=== PATIENT | male | born 1980 | race Caucasian/White ===

== ENCOUNTER 2017-08-26 13:38 | Emergency (ER) | payer OTHER ==
[~2017-08-26] VITALS: Ht 180.3 cm; Wt 76.4 kg
[2017-08-26 13:39] VITALS: BP 146/99
[2017-08-26] MEDS ORDERED: PRED20TA PO (15:02)
== END 2017-08-26 15:17 | disposition home or self-care (01) ==
LOC: M ED 13:38
DX: T78.40XA Allergy, unspecified, initial encounter (principal); R21 Rash and other nonspecific skin eruption; F17.210 Nicotine dependence, cigarettes, uncomplicated; Z88.1 Allergy status to other antibiotic agents; Z91.040 Latex allergy status

== ENCOUNTER → 2017-11-11 | Outpatient (CLI) | payer OTHER | LOC: M WUC 15:45 | DX: M79.641 Pain in right hand (principal) | CPT/HCPCS: 73130 ==

== ENCOUNTER → 2018-06-01 | Outpatient (CLI) | payer OTHER | LOC: M SLEEP 19:32 | DX: G47.30 Sleep apnea, unspecified (principal) | CPT/HCPCS: 95810 ==

== ENCOUNTER → 2019-03-31 | Outpatient (CLI) | payer OTHER ==
[~2019-03-31] MED LIST: PRED20TA PO
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
== END ==
LOC: M PAIN 16:00
PROVIDERS: ATTEND Anesthesiology
DX: M51.16 Intervertebral disc disorders with radiculopathy, lumbar region (principal); M51.17 Intervertebral disc disorders with radiculopathy, lumbosacral region; M79.18 Myalgia, other site; G47.30 Sleep apnea, unspecified; G47.00 Insomnia, unspecified; F31.9 Bipolar disorder, unspecified; F90.9 Attention-deficit hyperactivity disorder, unspecified type; F17.210 Nicotine dependence, cigarettes, uncomplicated; Z88.1 Allergy status to other antibiotic agents; Z88.5 Allergy status to narcotic agent

== ENCOUNTER 2019-09-21 10:41 | Emergency (ER) | payer OTHER ==
[~2019-09-21] VITALS: Ht 182.9 cm; Wt 68.3 kg
[2019-09-21] MEDS ORDERED: TIZA4TAB4 (10:47)
[2019-09-21] MEDS ORDERED: MELO7.5T35 (10:47)
[2019-09-21] MEDS ORDERED: LIDOCAINE 5% (LIDODERM) PATCH TD ONE (11:30)
[2019-09-21] MEDS ORDERED: ACETAMINOPHEN 500 MG TAB PO ONE (11:30)
[2019-09-21] MEDS ORDERED: diazePAM 5 MG TAB PO ONE (11:30)
[2019-09-21] MEDS ORDERED: LIDO5DIS41 TD (12:02)
[2019-09-21] MEDS ORDERED: IBUP80TA PO (12:02)
[2019-09-21 12:05] VITALS: BP 144/87
[2019-09-21] MEDS ORDERED: **NOTE PATIENT COMMENT** MISC XX SCH (21:00)
== END 2019-09-21 12:06 | disposition home or self-care (01) ==
LOC: M ED 10:41
DX: S39.012A Strain of muscle, fascia and tendon of lower back, initial encounter (principal); X58.XXXA Exposure to other specified factors, initial encounter; Y92.89 Other specified places as the place of occurrence of the external cause; M41.9 Scoliosis, unspecified; Z88.1 Allergy status to other antibiotic agents; Z91.040 Latex allergy status; Z91.048 Other nonmedicinal substance allergy status

== ENCOUNTER → 2019-10-19 | Outpatient (REF) | payer OTHER, MEDICAID ==
[~2019-10-19] MED LIST changes: +IBUP80TA PO; +LIDO5DIS41 TD; +MELO7.5T35; +TIZA4TAB4
[2019-10-19 17:52] LABS: BASO # 0.1 10^3/uL (0.0-0.2); BASO % 0.9 % (0.0-1.0); EOS # 0.4 10^3/uL (0.0-0.5); EOS % 3.4 % (0.0-3.0); HEMATOCRIT 48.3 % (42.0-52.0); HEMOGLOBIN 16.2 g/dl (13.5-17.5); LYMPH # 2.5 10^3/uL (1.5-5.0); LYMPH % 23.2 % (24.0-44.0); MEAN CORPUSCULAR HEMOGLOBIN 32.8 pg (27.0-33.0); MEAN CORPUSCULAR HGB CONC 33.5 g/dl (32.0-36.5); MEAN CORPUSCULAR VOLUME 97.8 fl (80.0-96.0); MONO # 0.9 10^3/uL (0.0-0.8); MONO % 8.2 % (0.0-5.0); NEUTROPHILS # 6.9 10^3/uL (1.5-8.5); NEUTROPHILS % 63.8 % (36.0-66.0); PLATELET COUNT, AUTOMATED 316 10^3/uL (150-450); RED BLOOD COUNT 4.94 10^6/uL (4.30-6.10); WHITE BLOOD COUNT 10.8 10^3/uL (4.0-10.0)
[2019-10-19 18:02] LABS: ALT/SGPT 25 U/L (12-78); BILIRUBIN,TOTAL 0.3 MG/DL (0.2-1.0); BLOOD UREA NITROGEN 11 MG/DL (7-18); CALCIUM LEVEL 9.3 MG/DL (8.5-10.1); CARBON DIOXIDE LEVEL 32 MEQ/L (21-32); CHLORIDE LEVEL 107 MEQ/L (98-107); CHOLESTEROL LEVEL 184 MG/DL (<200); CHOLESTEROL RISK RATIO 2.875 (<5); CREATININE FOR GFR 0.84 MG/DL (0.70-1.30); FREE T4 0.92 NG/DL (0.76-1.46); GLOMERULAR FILTRATION RATE > 60.0 (>60); GLUCOSE, FASTING 104 MG/DL (70-100); HDL CHOLESTEROL 64 MG/DL (>40); LDL CHOLESTEROL 102 MG/DL (<100); NON-HDL-C 120 MG/DL; POTASSIUM SERUM 4.9 MEQ/L (3.5-5.1); SODIUM LEVEL 140 MEQ/L (136-145); TOTAL PROTEIN 7.4 GM/DL (6.4-8.2); TRIGLYCERIDES LEVEL 90 MG/DL (<150)
[2019-10-19 18:08] LABS: HEMOGLOBIN A1c 5.3 %
[2019-10-20 11:03] LABS: TOTAL 25(OH) VITAMIN D 20.5 NG/ML (30.0-100.0)
== END ==
LOC: M LAB REF 16:29
PROVIDERS: ATTEND Nurse Practitioner Family
DX: F10.20 Alcohol dependence, uncomplicated (principal); F17.210 Nicotine dependence, cigarettes, uncomplicated; M54.9 Dorsalgia, unspecified; R03.0 Elevated blood-pressure reading, without diagnosis of hypertension; M54.6 Pain in thoracic spine

== ENCOUNTER 2020-10-02 15:15 | Emergency (ER) | payer OTHER, MEDICAID ==
[~2020-10-02] VITALS: Ht 182.9 cm; Wt 65.2 kg
--- OUTSIDE RECORDS SUMMARY | 2020-10-02 15:22 | CCD | Continuity of Care Document ---
Author Author Miguel PHAN PA-C Organization Unknown Address [address] [place] [id number] Phone [phone] Care Team Providers Care Renewals Representative Name Role Phone Maya Bal SENIOR NETWORK ARCHITECT-BC [employer] Problems Description No Information Available Social History Type Date Description Comments Sex Unknown ETOH Use Currently consumes alcohol DAILY Tobacco Use Start: Unknown Patient is a current smoker, smo kes every day 1 pack every other day Smoking Status Reviewed: 10/06/19 Patient is a current smoker, smokes every day 1 pack every other day Allergies, Adverse Reactions, Alerts Active Allergies Reaction Severity Comments Date clyndamyacin 10/06/2019 Medications Active Medications SIG Qnty Indications Ordering Provide r Date Baclofen 10mg Tablets 1 3 times a day 30tabs M51.36 Maurizio Benítez MD 10/06/2019 Ibuprofen 800mg Tablets one by mouth three times a day as needed Unknown Immunizations Description No Information Available Vital Signs Date Vital Result Comment 10/06/2019 10:03am Body Temperature 98.2 F Height 71 inches 5'11" Weight 150.00 lb BMI (Body Mass Index) 20.9 kg/m2 Results Description No Information Available Procedures Description No Information Available Medical Devices Description No Information Available Encounters Type Date Location Provider Dx Diagnosis Office Visit 07/10/2020 2:45p Jacinta Phan PA-C M5 1.36 Other intervertebral disc degeneration, lumbar region M54.31 Sciatica, right side M54.16 Radiculopathy, lumbar region Office Visit 05/29/2020 2:45p Jacinta Phan PA-C M5 1.36 Other intervertebral disc degeneration, lumbar region M54.31 Sciatica, right side Assessments Date Code Description Provider 07/10/2020 M51.36 Other intervertebral disc degene ration, lumbar region Jazz Phan PA-C 07/10/2020 M54.31 Sciatica, right side Jazz Phan PA-C 07/10/2020 M54.16 Radiculopathy, lumbar region Ethan Phan PA-C 05/29/2020 M51.36 Other intervertebral disc degene ration, lumbar region Jazz Phan PA-C 05/29/2020 M54.31 Sciatica, right side Jazz Phan PA-C 03/25/2020 M51.36 Other intervertebral disc degene ration, lumbar region Jazz Phan PA-C 03/25/2020 M54.31 Sciatica, right side Jazz Phan PA-C Plan of Treatment 07/10/2020 - Jazz Phan PA-C* M51.36 Other intervertebral disc degeneration, lumbar region* Follow up:* 2 weeks with bms for back re-check * M54.31 Sciatica, right side * M54.16 Radiculopathy, lumbar region Functional Status Description No Information Available Mental Status Description No Information Available Referrals Refer to Reason for Referral Status Appt Date Jazz Phan PA-C MRI- BACK PER WEB. PASSED TO [facility]. RAD[facility] Created [address] [place] [address] [place] [address] [phone]
--- OUTSIDE RECORDS SUMMARY | 2020-10-02 15:22 | CCD ---
Author Author [facility] Organization [facility] Address Unknown Phone Unavailable Care Team Providers Care [facility]itarian Name Role Phone Blayne, A Lidya GEOGRAPHIC ANALYST Unavailable Unavailable Blayne, A Lidya GEOGRAPHIC ANALYST Unavailable Unavailable Blayne, A Lidya GEOGRAPHIC ANALYST Unavailable Unavailable Blayne, A Lidya GEOGRAPHIC ANALYST Unavailable Unavailable Blayne, A Lidya GEOGRAPHIC ANALYST Unavailable Unavailable Blayne, A Lidya GEOGRAPHIC ANALYST Unavailable Unavailable Blayne, A Lidya GEOGRAPHIC ANALYST Unavailable Unavailable Blayne, A Lidya GEOGRAPHIC ANALYST Unavailable Unavailable Blayne, A Lidya GEOGRAPHIC ANALYST Unavailable Unavailable Blayne, A Lidya GEOGRAPHIC ANALYST Unavailable Unavailable Blayne, A Lidya GEOGRAPHIC ANALYST Unavailable Unavailable Blayne, A Lidya GEOGRAPHIC ANALYST Unavailable Unavailable Blayne, A Lidya GEOGRAPHIC ANALYST Unavailable Unavailable Blayne, A Lidya GEOGRAPHIC ANALYST Unavailable Unavailable Blayne, A Lidya GEOGRAPHIC ANALYST Unavailable Unavailable Blayne, A Lidya GEOGRAPHIC ANALYST Unavailable Unavailable Blayne, A Lidya GEOGRAPHIC ANALYST Unavailable Unavailable Blayne, A Lidya GEOGRAPHIC ANALYST Unavailable Unavailable Blayne, A Lidya GEOGRAPHIC ANALYST Unavailable Unavailable Blayne, A Lidya GEOGRAPHIC ANALYST Unavailable Unavailable Blayne, A Lidya GEOGRAPHIC ANALYST Unavailable Unavailable Blayne, A Lidya GEOGRAPHIC ANALYST Unavailable Unavailable Blayne, A Lidya GEOGRAPHIC ANALYST Unavailable Unavailable Blayne, A Lidya GEOGRAPHIC ANALYST Unavailable Unavailable Blayne, A Lidya GEOGRAPHIC ANALYST Unavailable Unavailable Blayne, A Lidya GEOGRAPHIC ANALYST Unavailable Unavailable Blayne, A Lidya GEOGRAPHIC ANALYST Unavailable Unavailable Rachell Garcia MD Unavailable Unavailable Rachell Garcia MD Unavailable Unavailable Rachell Garcia MD Unavailable Unavailable Rachell Garcia MD Unavailable Unavailable Rachell Garcia MD Unavailable Unavailable Rachell Garcia MD Unavailable Unavailable Rachell Garcia MD Unavailable Unavailable Rachell Garcia MD Unavailable Unavailable Rachell Garcia MD Unavailable Unavailable Rachell Garcia MD Unavailable Unavailable Rachell Garcia MD Unavailable Unavailable Rachell Garcia MD Unavailable Unavailable Rachell Garcia MD Unavailable Unavailable Rachell Garcia MD Unavailable Unavailable Rachell Garcia MD Unavailable Unavailable Rachell Garcia MD Unavailable Unavailable Rachell Garcia MD Unavailable Unavailable Rachell Garcia MD Unavailable Unavailable Rachell Garcia MD Unavailable Unavailable Rachell Garcia MD Unavailable Unavailable Rachell Garcia MD Unavailable Unavailable Rachell Garcia MD Unavailable Unavailable Rachell Garcia MD Unavailable Unavailable Rachell Garcia MD Unavailable Unavailable Rachell Garcia MD Unavailable Unavailable Rachell Garcia MD Unavailable Unavailable Rachell Garcia MD Unavailable Unavailable Rachell Garcia MD Unavailable Unavailable Rachell Garcia MD Unavailable Unavailable Rachell Garcia MD Unavailable Unavailable Rachell Garcia MD Unavailable Unavailable Rachell Garcia MD Unavailable Unavailable Rachell Garcia MD Unavailable Unavailable Rachell Garcia MD Unavailable Unavailable Rachell Garcia MD Unavailable Unavailable Rachell Garcia MD Unavailable Unavailable Rachell Garcia MD Unavailable Unavailable Rachell Garcia MD Unavailable Unavailable Rachell Garcia MD Unavailable Unavailable Rachell Garcia MD Unavailable Unavailable Rachell Garcia MD Unavailable Unavailable Rachell Garcia MD Unavailable Unavailable Rcahell Garcia MD Unavailable Unavailable Rachell Garcia MD Unavailable Unavailable Rachell Garcia MD Unavailable Unavailable Rachell Garcia MD Unavailable Unavailable Rachell Garcia MD Unavailable Unavailable Rachell Garcia MD Unavailable Unavailable Rachell Garcia MD Unavailable Unavailable Rachell Garcia MD Unavailable Unavailable Rachell Garcia MD Unavailable Unavailable Rachell Garcia MD Unavailable Unavailable Rachell Garcia MD Unavailable Unavailable Rachell Garcia MD Unavailable Unavailable Rachell Garcia MD Unavailable Unavailable Rachell Garcia MD Unavailable Unavailable Rachell Garcia MD Unavailable Unavailable Rachell Garcia MD Unavailable Unavailable Rachell Garcia MD Unavailable Unavailable Rachell Garcia MD Unavailable Unavailable Rachell Garcia MD Unavailable Unavailable Rachell Garcia MD Unavailable Unavailable Rachell Garcia MD Unavailable Unavailable Rachell Garcia MD Unavailable Unavailable Rachell Garcia MD Unavailable Unavailable Rachell Garcia MD Unavailable Unavailable Rachell Garcia MD Unavailable Unavailable Rachell Garcia MD Unavailable Unavailable Rachell Garcia MD Unavailable Unavailable Rachell Garcia MD Unavailable Unavailable Rachell Garcia MD Unavailable Unavailable Rachell Garcia MD Unavailable Unavailable Rachell Garcia MD Unavailable Unavailable Rachell Garcia MD Unavailable Unavailable Rachell Garcia MD Unavailable Unavailable Rachell Garcia MD Unavailable Unavailable Rachell Garcia MD Unavailable Unavailable Rachell Garcia MD Unavailable Unavailable Rachell Garcia MD Unavailable Unavailable Rachell Garcia MD Unavailable Unavailable Rachell Garcia MD Unavailable Unavailable Rachell Garcia MD Unavailable Unavailable Rachell Garcia MD Unavailable Unavailable Rachell Garcia MD Unavailable Unavailable Rachell Garcia MD Unavailable Unavailable Rachell Garcia MD Unavailable Unavailable Rachell Garcia MD Unavailable Unavailable Rachell Garcia MD Unavailable Unavailable Rachell Garcia MD Unavailable Unavailable Phan, M Barratt PA Unavailable Unavailable Phan, M Barratt PA Unavailable Unavailable Phan, M Barratt PA Unavailable Unavailable Phan, M Barratt PA Unavailable Unavailable Phan, M Barratt PA Unavailable Unavailable Phan, M Barratt PA Unavailable Unavailable Phan, M Barratt PA Unavailable Unavailable Phan, M Barratt PA Unavailable Unavailable Phan, M Barratt PA Unavailable Unavailable Phan, M Barratt PA Unavailable Unavailable Phan, M Barratt PA Unavailable Unavailable Phan, M Barratt PA Unavailable Unavailable Phan, M Barratt PA Unavailable Unavailable Phan, M Barratt PA Unavailable Unavailable Phan, M Barratt PA Unavailable Unavailable Phan, M Barratt PA Unavailable Unavailable Phan, M Barratt PA Unavailable Unavailable Phan, M Barratt PA Unavailable Unavailable Phan, M Barratt PA Unavailable Unavailable Phan, M Barratt PA Unavailable Unavailable Phan, M Barratt PA Unavailable Unavailable Phan, M Barratt PA Unavailable Unavailable Phan, M Barratt PA Unavailable Unavailable Phan, M Barratt PA Unavailable Unavailable Phan, M Barratt PA Unavailable Unavailable Phan, M Barratt PA Unavailable Unavailable Phan, M Barratt PA Unavailable Unavailable Phan, M Barratt PA Unavailable Unavailable Phan, M Barratt PA Unavailable Unavailable Phan, M Barratt PA Unavailable Unavailable Phan, M Barratt PA Unavailable Unavailable Phan, M Barratt PA Unavailable Unavailable Phan, M Barratt PA Unavailable Unavailable Phan, M Barratt PA Unavailable Unavailable Phan, M Barratt PA Unavailable Unavailable Phan, M Barratt PA Unavailable Unavailable Phan, M Barratt PA Unavailable Unavailable Phan, M Barratt PA Unavailable Unavailable Phan, M Barratt PA Unavailable Unavailable Phan, M Barratt PA Unavailable Unavailable Phan, M Barratt PA Unavailable Unavailable Phan, M Barratt PA Unavailable Unavailable Phan, M Barratt PA Unavailable Unavailable Phan, M Barratt PA Unavailable Unavailable Phan, M Barratt PA Unavailable Unavailable Phan, M Barratt PA Unavailable Unavailable Phan, M Barratt PA Unavailable Unavailable Phan, M Barratt PA Unavailable Unavailable Phan, M Barratt PA Unavailable Unavailable Phan, M Barratt PA Unavailable Unavailable Phan, M Barratt PA Unavailable Unavailable Phan, M Barratt PA Unavailable Unavailable Phan, M Barratt PA Unavailable Unavailable Phan, M Barratt PA Unavailable Unavailable Lidya Cisneros GEOGRAPHIC ANALYST GEOGRAPHIC ANALYST Unavailable Unavailable Re-disclosure Warning The records that you are about to access may contain information from federally-assisted alcohol or drug abuse programs. If such information is present, then the following federally mandated warning applies: This information has been disclosed to you from records protected by federal confidentiality rules (42 CFR part 2). The federal rules prohibit you from making any further disclosure of this information unless further disclosure is expressly permitted by the written consent of the person to whom it pertains or as otherwise permitted by 42 CFR part 2. A general authorization for the release of medical or other information is NOT sufficient for this purpose. The Federal rules restrict any use of the information to criminally investigate or prosecute any alcohol or drug abuse patient.The records that you are about to access may contain highly sensitive health information, the redisclosure of which is protected by Article 27-F of the [facility] Public Health law. If you continue you may have access to information: Regarding HIV / AIDS; Provided by facilities licensed or operated by the [facility] Office of Mental Health; or Provided by the [facility] Office for People With Developmental Disabilities. If such information is present, then the following [facility] mandated warning applies: This information has been disclosed to you from confidential records which are protected by state law. State law prohibits you from making any further disclosure of this information without the specific written consent of the person to whom it pertains, or as otherwise permitted by law. Any unauthorized further disclosure in violation of state law may result in a fine or mcc sentence or both. A general authorization for the release of medical or other information is NOT sufficient authorization for further disc losure. Allergies and Adverse Reactions Type Description Substance Reaction Status Data Source(s ) Drug allergy HYDROCODONE HYDROCODONE [place] [facility] Drug allergy CLINDAMYCIN CLINDAMYCIN [place] [facility] try Family [facility] Family History Family Member Name Family Member Gender Family Member Status Date o f Status Description Data Source(s) Unknown Unknown Problem [facility] ([facility]) Encounters Encounter Providers Location Date Indications Data Source(s ) Outpatient Attender: Jazz CISNEROS Physical Therapy 02:45:00 PM EDT [facility] ([facility]) Outpatient Attender: Jazz CISNEROS Physical Therapy 02:45:00 PM EDT [facility] ([facility]) Outpatient Attender: Jazz CISNEROS Physical Therapy 01:15:00 PM EDT [facility] ([facility]) Outpatient Referrer: Jazz CISNEROS 03/05/2020 04:44:0 0 PM EDT [facility] Outpatient 03/05/2020 04:40:00 PM EDT [facility] Outpatient Attender: DENISE WALKER 02/09/2020 02:16:[address] [facility] Outpatient Attender: Lidya WALKER 02/09/2020 02:1 5:[address] [facility] Outpatient Attender: DENISE WALKER 02/01/2020 02:52:[address] [facility] Outpatient Attender: DENISE WALKER 01/31/2020 02:51:[address] [facility] Outpatient Attender: DENISE WALKER 01/22/2020 01:26:[address] [facility] Outpatient Attender: DENISE WALKER 12/07/2019 01:43:[address] [facility] Outpatient Attender: Jazz CISNEROS Physical Therapy 10:45:00 AM EDT [facility] ([facility]) Outpatient Attender: Lidya WALKER FP 11/04/2019 02:2 2:00 PM [facility] Outpatient Attender: DENISE WALKER FP 11/04/2019 02:22:00 P M [facility] Outpatient Attender: DENISE WALKER FP 10/27/2019 09:18:04 A M [facility] Outpatient Attender: Lidya Blayne WALKER FP 10/25/2019 01:1 8:02 PM [facility] Outpatient Attender: Lidyara Blayne WALKER FP 10/19/2019 10:1 4:47 AM [facility] Outpatient Attender: DENISE WALKER FP 10/19/2019 10:14:04 A M [facility] Outpatient 10/16/2019 08:35:00 AM [facility] Outpatient 10/12/2019 08:39:00 AM [facility] Outpatient 10/11/2019 02:56:00 PM [facility] Outpatient 10/11/2019 02:33:00 PM [facility] OFFICE OUTPATIENT NEW 30 MINUTES Attender: Jazz CISNEROS Ph ysical Therapy 10/06/2019 08:30:00 AM EST [facility] ([facility]) Outpatient Attender: Mati Garcia MD 09/29/2019 02:42:00 PM [facility] Outpatient Attender: Mati Garcia MD 09/26/2019 12:00:07 AM [facility] Outpatient Attender: Mati Garcia MD 09/25/2019 01:11:00 PM [facility] Outpatient Attender: Mati Garcia MD FP 09/25/2019 01:10:00 PM [facility] Outpatient Attender: Mati Garcia MD FP 09/25/2019 11:31:59 AM [facility] Outpatient Attender: Mati Garcia MD FP 09/25/2019 09:54:01 AM [facility] Outpatient Attender: Mati Garcia MD FP 09/22/2019 11:34:02 AM [facility] Medications Medication Brand Name Start Date Product Form Dose Route Admi nistrative Instructions Pharmacy Instructions Status Indications Reaction Description Data Source(s) Baclofen 10 MG Oral Tablet Baclofen 10/06/2019 12:00:00 AM EST active [facility] ([facility] Insurance Providers Payer name Policy type / Coverage type Policy ID Covered republican ID Covered republican's relationship to conway Policy [place] Plan Information GM [id number] SP [id number] UN[employer] COMMUNITY PLAN MCDHMO [id number] SP [id number] [facility]) O [id number] S [id number] Managed Care [facility] Community Plan P [id number] S [id number] Medicaid S [id number] S [id number] MEDICAID [id number] SP [id number] Managed Care [facility] P [id number] S [id number] ANSI-Medicaid [id number] Managed Care [facility] P [id number] S [id number] Medicaid S [id number] S [id number] SELF PAY UNAVAILABLE SP UNAVAILA BLE [facility] Health Maintenance Organization (HMO) [id number] [facility] Community Plan Commercial [id number] Self [id number] Managed Care - [facility] P [id number] S [id number] [facility] Health Maintenance Organization (HMO) [id number] Self [id number] [employer] NO FAULT [id number] 1 4 SP [id number] 1 4 [facility]) O [id number] S [id number] SELF PAY ONLY [id number] SP [id number] [employer] PLAN [id number] SP [id number] [employer] UNAVAILABLE SP UNAVAILABLE [employer] PLAN [id number] SP [id number] MEDICAID P [id number] S [id number] Problems, Conditions, and Diagnoses Code Display Name Description Problem Type Effective Dates Data Source(s) F12.90 Cannabis use, unspecified, uncomplicated Cannabis use, unspecified, uncomplicated 02/09/2020 02:14:[address] [facility] V65.8 Person consulting for explanation of exa mination or test findings Person consulting for explanation of examination or test findings 02/01/2020 02:51:[address] [facility] [id number] Alcohol dependence, uncomplicated Alcohol dependence, uncomplicated 09/25/2019 11:31:[address] [facility] 724.5 Chronic back pain Chronic back pain 09/25/2019 11:31:[address] [facility] Surgeries/Procedures Procedure Description Date Indications Data Source(s) X-Ray Spine Lumbosacral Complete Inc Bending Views Min Of 6 10/06/2019 12:00:00 AM EST [facility] ([facility]) Results ID Date Data Source [id number] 03/20/2020 12:00:00 AM EDT [facility] Jazz Phan [facility] Patient Name: HAROON NEGRON [id number] [facility] Date of : 1980 201 Date of Exam: 03/20/2020GRISEL Workman [id number]#: Fax: [phone] EXAM: MRI LUMBAR SPINE WITHOUT CONTRASTPROCEDURE INFORMATION:Exam: MR Lumbar Spine Without Contrast.Exam date and time: 03/20/2020 5:02 PM Age: 39 years oldClinical indication: Low back painTECHNIQUE: Imaging protocol: Multiplanar magnetic resonance images of thelumbar spine without intravenous contrast.COMPARISON: MRI LUMBAR 04/30/2018 9:25 AMFINDINGS: Vertebral body heights are maintained. Chronic unchanged mildModic type 1 edematous degenerative endplate change anteriorly at T12-L1.No evidence of acute fracture. No cord compression. No abnormal cordsignal. Conus medullaris terminates at the L1 level. Paravertebral softtissues are unremarkable.L1-L2: No significant canal or foraminal narrowing.L2-L3: No significant canal or foraminal narrowing.L3-L4: No significant canal or foraminal narrowing.L4-L5: Facet hypertrophy causes mild to moderate left foraminal narrowing.No significant canal narrowing.L5-S1: Broad-based disc bulge and facet hypertrophy cause mild canalnarrowing and effacement of the right lateral recess with questionableimpingement upon the traversing right S1 nerve root. Mild left and moderateright foraminal narrowing.IMPRESSION:Spondylotic changes of the lower lumbar spine from L4 through S1, asdetailed above.Thank you for allowing us to participate in the care of your patient.Dictated and Authenticated by: Mason Figueroa MD 03/22/2020 4:58 PMEastern Time ([place] & [place])VrgenevaV/Stephanie you for referring HAROON NEGRON to our office. Electronically Signed - MANISH 03/25/20 8:43 Name Value Range Interpretation Code Description Data Liv rce(s) Supporting Document(s) ID Date Data Source [id number] 02/01/2020 02:01:[address] [facility] Measurements & CalculationsHeight: 71 inches (5 ft. 11 in.) 180.34 cm Vital Signs performed by: Ilana Mary LPN, February 01, 2020 2:01 PMVital Signs performed by: Ilana Mary LPN, February 01, 2020 2:01 PMInitial Intake (Cell) Visit Type: phone encounterConsent Provided by PatientInfectious Disease / Travel ScreeningRecent travel for you or any close contacts? NoHave you had any close contact with anyone diagnosed with or under investigation for COVID-19 (coronavirus)? NoFever? NoRespiratory symptoms: cough, cold, congestion, shortness of breath, difficulty breathing? NoLoss of smell? NoLoss of taste? NoSmoking, Tobacco, Vaping or Smoke Exposure StatusSmoke Status: current every day smokerTobacco Use: YesAdv to Quit: YesDo you vape? NoPassive Smoke Exposure: NoHealthcare HistorySince your last office visit...Have you been admitted to the hospital? NoHave you been to an emergency room (ER) or urgent care clinic? NoHave you seen another healthcare provider? Yes - DR ROJAS Have you seen a dentist? Yes - NCFHIntake performed by: Ilana Mary LPN, February 01, 2020 2:03 PMRate Your HealthIn general, would you say your health is? Very GoodPain AssessmentAre you currently having any pain which... You would like your provider to address? Yes Affects your activity level? YesDepression Screening - PHQ-2Over the last two weeks, have you... Had alexa le interest or pleasure in doing things? Not at all Been feeling down, depressed, or hopeless? Not at all PHQ-2 Score: 0Anxiety Screening - UZMA-2Over the last two weeks, have you been... Feeling nervous, anxious, or on edge? Not at all Unable to stop or control worrying? Not at all UZMA-2 Score: 0Food InsecurityWithin the past year...Did you worry whether your food would run out before you got money to buy more? NoWas there a time when the food you bought didn't last and you didn't have money to get more? NoPain AssessmentPain ScaleNumeric Rating Scale: 10 / 10Location: low back Duration: Months Frequency: DailyCharacter/Quality: stabbingIs the pain radiating? YesTo what body part(s) is the pain radiating? right leg Screening, Brief Intervention, & Referral to Treatment (SBIRT)Pre-Screening Questions How many times have you have 5 or more drinks in a day? 180How many times have you used an illegal drug or used a prescription medication for a non-medical reason? 104Performed by: Ilana Mary LPN, February 01, 2020 2:13 PMPatient History Medical History:sleep apneaSurgical History:No known surgical historyFamily History:Hypertension (Mother)Social/Personal History: Age of First Use: 17Advised to Quit/Tobacco Education: YesChief ComplaintLab results History of Present Illness (HPI)This visit was conducted via telephone. Liday WALKER has received verbal consent from the patient/guardian to conduct this visit via telehealth. The patient has been made aware that they have the right to refuse telehealth; of my location and the security of the telehealth software; any other parties present in the session; and that they have a right to select another provider if chosen for a face to face visit.39 YO for lab results ,C/O chronic pain in back area. sees specialist. Pt states sill smokes 1-2 packs cigarettes daily. pt states also smokes marijuana frequently. pt drinks alcohol frequently. Pt denies chest pain. Pt denies chest palpitation. Pt denies nausea. Pt denies vomiting. Pt den ies other concerns today. HPI performed by: Lidya WALKER, February 01, 2020 2:46 PMTransitions of Care InboundProblem ReviewProblem List was reviewed and/or updated during this visit.Medication Reconciliation & ReviewMedication List was reviewed and/or updated during this visit, including review of any [id number] medications, herbal therapies, and/or supplements.Allergy ReviewAllergy List was reviewed and/or updated during this visit.Adult Preventive CareProvider Calculated and Reviewed all Clinical Protocols for patient today. Screening Tobacco Screening: Smoking Status: current every day smoker (02/01/2020) Tobacco Use: Currently (02/01/2020) Advised to Quit: Yes (02/01/2020)Labs/Meds/Other Counseling-Nutrition and Physical Activity:BMI Interpretation: Healthy Weight (09/25/2019) Counseling: Done (09/25/2019) Physical Activity: Done (09/25/2019)Review of Systems General: Denies loss of appetite, chills, dizziness, fatigue, fever, continued fever, headache, feeling ill, sweats, night sweats, sleep disturbances, weight loss. Eyes: Denies blurring of vision, double vision, irritation, discharge, vision loss, eye pain, eye swelling, droopy eyelid, sensitivity to light, redness, itching. Ears/Nose/Throat: Denies earache, ear discharge, ringing in ears, decreased hearing, nasal congestion, nosebleeds, runny nose, sore throat, hoarseness, difficulty swallowing, dry mouth, tooth pain, bleeding gums, swollen glands. Cardiovascular: Denies chest pain, palpitations, feeling faint, trouble breathing w/exertion, SOB upon lying down, SOB at night, peripheral edema, elevated blood pressure, decreased heart rate. Respiratory: Denies cough, difficulty breathing, shortness of breath, excessive sputum, coughing up blood, wheezing, chest pain. Breast: Denies discoloration, tenderness, breast changes, breast lump, nipple discharge. Gastrointestinal: Denies nausea, vomiting, bleeding, burning, itching, irritation, cramps, diarrhea, constipation. Genitourinary: Denies urinary incontinence, pain with urination, burning with urination, urinary frequency, urinary hesitancy, urinary urgency, urinary urgency at night, incomplete emptying, blood in urine. Musculoskeletal: Complai ns of back pain, joint pain, leg pain, body aches, muscle aches. Denies other pain-see comments, joint swelling, muscle cramps, muscle weakness, stiffness, recent injury. Skin: Denies rash, hives, redness, itching, dryness, nail changes, suspicious lesions, athlete's foot, rash on palms, rash on bottom of feet. Neurologic: Denies muscle impairment, weakness, numbness/tingling, seizures, slurred speech, feeling faint, tremors, vertigo, paralysis on one side, paralysis on both sides. Psychiatric: Denies depression, anxiety, memory loss, mental disturbance, suicidal ideation, homicidal ideation, hallucinations, paranoia, feeling stressed, hearing voices. Endocrine: Denies cold intolerance, heat intolerance, excessive thirst, excessive hunger, excessive urination, weight loss, weight gain. Physical ExamJudgment & Insight: seems poorCare Management Plan Transitions of CareInboundRate Your HealthIn general, would you say your health is? Very GoodAssessment & Plan Problems:Added: Person consulting for explanation of examination or test findings (ICD-V65.8) (LKW97-T81.2) Assessment: Instructions: Lab results reviewed with you todayPerson consulting for explanation of examination or test findings (ICD-V65.8) (ICD10- Z71.2) Assessment: Telephone visit 20 minutesLab results discussed. Pt sees specialist for chronic back pain. Patient will call for sooner appointment.Smoking cessation and alcohol cessation discussed.Cannabis use, unspecified, uncomplicated (WMK74-T78.90) Assessment: Instructions: Marijuana is still an illicit substance in the state of [place]. Please try to avoid use.Assessed:Chronic back pain (ICD-724.5) (PMY48-R74.9) Assessment: Instructions: Please continue to follow with your specialist. May call for a sooner appointment.Alcohol dependence, uncomplicated (USI98-X39.20) Assessment: Instructions: Please try to cut back on drinking alcohol with a goal to quit drinking alcohol. Please do not dink alcohol while taking present medications.Chronic back pain (ICD-724.5) (NWO42-A07.9) Assessment: sees orthoNicotine dependence, cigarettes, uncomplicated (PVG61-B79.210) Assessment: Instructions: Please try to cut back on your smoking with a goal to quit. Please let us know if you need assistance in doing so.Patient Instructions/Care Plan: Chronic back pain: Please continue to follow with your specialist. May call for a sooner appointment.Person consulting for explanation of examination or test findings: Lab results reviewed with you todayAlcohol dependence- uncomplicated: Please try to cut back on drinking alcohol with a goal to quit drinking alcohol. Please do not dink alcohol while taking present medications.Nicotine dependence- cigarettes- uncomplicated: Please try to cut back on your smoking with a goal to quit. Please let us know if you need assistance in doing so.Cannabis use- unspecified- uncomplicated: Marijuana is still an illicit substance in the [facility]. Please try to avoid use. Plan developed in collaboration with patient and/or familyMedications:IBUPROFEN 800 MG ORAL TABLETTIZANIDINE HCL 4 MG ORAL TABLETCYCLOBENZAPRINE HCL 10 MG ORAL TABLETAllergies:* CLINDAMYCIN (Critical)HYDROCODONE (Critical)Orders:COMP METABOLIC PANEL [CPT-18056] CBC W/DIFF [CPT-10526] LIPID PANEL [CPT-87882] HgBA1c [CPT-61209] Telephone E&M 11- 20 min Medical Discussion [CPT-41304] Follow-Up Return to clinic: 3-4 months for follow up Additional Follow-Up: telephone visit 20 minutes Name Value Range Interpretation Code Description Data Liv rce(s) Supporting Document(s) ID Date Data Source [id number] 10/19/2019 09:25:[address] [facility] In-House Blood TestsDate/Time Colle cted: October 19, 2019 9:26 AMTest Result Reference Range Normal ValueComments: blood draw done in offcie done in the right ac toleated well Steve Sykes SHANNON, October 19, 2019 9:26 AMAssessment & Plan Orders:[id number] Vst-Est Level I [CPT-09991] 17399 - Venipuncture [CPT-32949] Name Value Range Interpretation Code Description Data Liv rce(s) Supporting Document(s) ID Date Data Source [id number] 10/19/2019 09:25:[address] [facility] Name Value Range Interpretation Code Description Data Liv rce(s) Supporting Document(s) HCT 48.3 % 42.0-52.0 [facility] HGB 16.2 g/dL 13.5-17.5 [facility] MCH 33.5 G/DL pg 32.0-36.5 N [facility] MCHC 32.8 PG % 27.0-33.[address] [facility] PLATELETS 316 10 10*3/mm3 150-[address] [facility] RBC 4.94 10 10*6/mm3 4.30-6.[address] [facility] RDW 11.7 % 11.5-14.[address] [facility] WBC TOTAL 10.8 4.0-10.[address] [facility] ID Date Data Source [id number] 10/19/2019 09:25:[address] [facility] Name Value Range Interpretation Code Description Data Liv rce(s) Supporting Document(s) HGBA1C 5.3 % N [facility] ID Date Data Source [id number] 10/19/2019 09:25:[address] [facility] Name Value Range Interpretation Code Description Data Liv rce(s) Supporting Document(s) VIT D25 TOT 20.5 ng/mL 30.0-100.0 L [facility] BG FASTING 104 mg/dL 70-100 H [facility] T4, FREE 0.92 ng/dL 0.76-1.46 N [facility] TSH 1.470 microintl units/mL 0.358-3.740 N [facility] ID Date Data Source [id number] 09/25/2019 09:57:14 AM [facility] Measurements & CalculationsHeight: 71 inches (5 ft. 11 in.) 180.34 cm Weight: 150 pounds 68.18 kg Body Mass Index (BMI): 21.00BMI Interpretation: Healthy WeightBody Surface Area (BSA): 1.87Weight Management Education Done (Nutrition/Physical Activity)Vital SignsTemperature: 97.1FPulse Rate: 90 beats/minuteRespiratory Rate: 17 respirations/minuteBlood Pressure: 133/90 O2 Saturation: 98% Vital Signs performed by: Deysi Bro MA, September 25, 2019 10:18 AMInitial Intake Information from: patientRoom #: 15Infectious Disease- Travel Have you or your sexual partner travelled outside of the country recently? NoSmoking, Tobacco or Smoke Exposure StatusSmoke Status: current every day smokerTobacco Use: YesAdv to Quit: YesPassive Smoke Exposure: YesHealthcare HistorySince your last office visit...Have you been admitted to the hospital? NoHave you been to an emergency room (ER) or urgent care clinic? YesHave you seen another healthcare provider? YesHave you seen a dentist? YesIntake performed by: Deysi Bro MA, September 25, 2019 10:16 AMRate Your HealthIn general, would you say your health is? Very GoodPain AssessmentAre you currently having any pain which... You would like your provider to address? Yes Affects your activity level? YesDepression Screening - PHQ-2Over the last two weeks, have you... Had little interest or pleasure in doing things? Not at all Been feeling down, depressed, or hopeless? Not at all PHQ-2 Score: 0Anxiety Screening - UZMA-2Over the last two weeks, have you been... Feeling nervous, anxious, or on edge? Not at all Unable to stop or control worrying? Not at all UZMA-2 Score: 0Pain AssessmentPain ScaleNumeric Rating Scale: 9 / 10Location: backDuration: weekFrequency: DailyCharacter/Quality: sharp and stingingIs the pain radiating? NoScreening, Brief Intervention, & Referral to Treatment (SBIRT)Pre-Screening Questions How many times have you have 5 or more drinks in a day? 0How many times have you used an illegal drug or used a prescription medication for a non-medical reason? 0Performed by: Deysi Bro MA, September 25, 2019 10:10 AMPatient History Medical History:sleep apneaSurgical History:No known surgical historyFamily History:Hypertension (Mother)Social/Personal History: Smoking Status: current every day smokerAge of First Use: 17Advised to Quit/Tobacco Education: YesChief Complaintback injuryHistory of Present Illness (HPI)39 yo male patient here today for follow up visit. Pt is concerned today with hs chronic back pain. Pt states he went to an "adjustor"and since then has been having exterme back pain to where it has been hard to walk at times. Pt states he went to the ER due to the pain. Pt states this problem has made it impossible to work. Pt states coughing is painful. Pt states his left hand goes numb at random. pt states follows at [facility] neurolog[facility]. , pt states will call to schedule an appointment. Pt request ing a referral to ortho for eval of his chronic back pain. HPI performed by: Lidya WALKER, September 25, 2019 1:46 PMTransitions of Care InboundProblem ReviewProblem List was reviewed and/or updated during this visit.Medication Reconciliation & ReviewMedication List was reviewed and/or updated during this visit, including review of any hpce-gzg-lslxaio medications, herbal therapies, and/or supplements.Allergy ReviewAllergy List was reviewed and/or updated during this visit.Adult Preventive CareProvider Calculated and Reviewed all Clinical Protocols for patient today. Screening Tobacco Screening: Smoking Status: current every day smoker (09/25/2019) Advised to Quit: Yes (09/25/2019)Labs/Meds/Other Counseling-Nutrition and Physical Activity:BMI Interpretation: Healthy Weight (09/25/2019) Counseling: Done (09/25/2019) Physical Activity: Done (09/25/2019)Review of Systems General: Denies loss of appetite, chills, dizziness, fatigue, fever, continued fever, headache, feeling ill, sweats, night sweats, sleep disturbances, weight loss. Eyes: Denies blurring of vision, double vision, irritation, discharge, vision loss, eye pain, eye swelling, droopy eyelid, sensitivity to light, redness, itching. Ears/Nose/Throat: Denies earache, ear discharge, ringing in ears, decreased hearing, nasal congestion, nosebleeds, runny nose, sore throat, hoarseness, difficulty swallowing, dry mouth, tooth pain, bleeding gums, swollen glands. Cardiovascular: Denies chest pain, palpitations, feeling faint, trouble breathing w/exertion, SOB upon lying down, SOB at night, peripheral edema, elevated blood pressure, decreased heart rate. Respiratory: Denies cough, difficulty breathing, shortness of breath, excessive sputum, coughing up blood, wheezing, chest pain. Gastrointestinal: Denies nausea, vomiting, diarrhea, constipation. Genitourinary: Denies urinary incontinence, pain with urination, burning with urination, urinary frequency, urinary hesitancy, urinary urgency, urinary urgency at night, incomplete emptying, blood in urine. Musculoskeletal: Complains of back pain, joint pain, body aches, muscle weakness. Denies leg pain, joint swelling, muscle aches, muscle cramps, stiffness, recent injury. Skin: Denies rash, hives, redness, itching, dryness, nail changes, suspicious lesions, athlete's foot, rash on palms, rash on bottom of feet. Neurologic: Complains of numbness/tingling. Denies muscle impairment, weakness, seizures, slurred speech, feeling faint, tremors, vertigo, paralysis on one side, paralysis on both sides. Psychiatric: Denies depression, anxiety, memory loss, mental disturbance, suicidal ideation, homicidal ideation, hallucinations, paranoia, feeling stressed, hearing voices. Endocrine: Denies cold intolerance, heat intolerance, excessive thirst, excessive hunger, excessive urination, weight loss, weight gain. Physical ExamGeneral Appearance: well nourished, well hydrated, no acute distressEyes, External: conjunctivae and lids normal, EOMIRespiratory, Auscultation: clear to auscultation bilaterally; no rales, rhonchi, or wheezesRespiratory, Effort: no intercostal retractions or use of accessory musclesCardiovascular, Auscultation: S1, S2 audible; no murmur, rub, or gallop; RRRAbdomen: soft, non-tender, no masses, bowel sounds normalGait & Station: normalBack: limited ROM, Pain on ROMOrientation: oriented to time, place, and personMood & Affect: no depression, anxiety, or agitationJudgment & Insight: seems intactCare Management Plan Transitions of CareInboundRate Your HealthIn general, would you say your health is? Very GoodAssessment & Plan P roblems:Added: Chronic back pain (ICD-724.5) (OML31-P23.9) Assessment: Patient states chronic back pain. worst over the last couple weeks. Instructions: Please continue medications as prescribed. May take warm baths or showers to help relax muscles. May alternate moist heat with cold therapy.Alcohol dependence, uncomplicated (TZO48-S30.20) Assessment: Instructions: Please try to cut back on drinking alcohol with a goal to quit drinking. Please do not dink alcohol while taking present medications.Chronic back pain (ICD-724.5) (KNE49-U29.9) Assessment: Instructions: Please make an appointment to see your neurologist as soon as possible.Assessed:Pain in thoracic spine (ICD-724.1) (WJP14-P38.6) Assessment: Instructions: We have made a referral for you today. We will contact you to set this up. Please continue medications as prescribed. Please report any major side effects.Nicotine dependence, cigarettes, uncomplicated (JPR04-C04.210) Assessment: pt states smoke one to two packs cigarettes daily. Instructions: cigarette smoking is linked to many health concerns. Please try to cut back on your smoking with a goal to quit.Cold extremities (ICD-780.99) (JUQ56-M03.8): hand bilaterally Assessment: Instructions: Please make an appointment to see your neurologist as soon as possible.Elevated blood pressure reading without diagnosis of hypertension (ICD- 796.2) (RBI75-V44.0) Assessment: Instructions: Your BP is elevated today. Please continue lifestyle changes to include healthy diet and physical activities. Please try avoid added sodium in your diet. Please try to maintain adequate hydration.Assessment not Saved Nicotine dependence; cigarettes; uncomplicated (PYV10-O18.210): Patient Instructions/Care Plan: Pain in thoracic spine: We have made a referral for you today. We will contact you to set this up. Please continue medications as prescribed. Please report any major side effects.Chronic back pain: Please continue medications as prescribed. May take warm baths or showers to help relax muscles. May alternate moist heat with cold therapy.Nicotine dependence- cigarettes- uncomplicated: cigarette smoking is linked to many health concerns. Please try to cut back on your smoking with a goal to quit.Alcohol dependence- uncomplicated: Please try to cut back on drinking alcohol with a goal to quit drinking. Please do not dink alcohol while taking present medications.Chronic back pain: Please make an appointment to see your neurologist as soon as possible.Cold extremities: Please make an appointment to see your neurologist as soon as possible.Elevated blood pressure reading without diagnosis of hypertension: Your BP is elevated today. Please continue lifestyle changes to include healthy diet and physical activities. Please try avoid added sodium in your diet. Please try to maintain adequate hydration. Plan developed in collaboration with patient and/or familyMedications:IBUPROFEN 800 MG ORAL TABLETTIZANIDINE HCL 4 MG ORAL TABLETCYCLOBENZAPRINE HCL 10 MG ORAL TABLETMedication Changes:Added: CYCLOBENZAPRINE HCL 10 MG ORAL TABLET-tid prnTIZANIDINE HCL 4 MG ORAL TABLET-tid prnIBUPROFEN 800 MG ORAL TABLET-prnAllergies:* CLINDAMYCIN (Critical)HYDROCODONE (Critical)Orders:Orthopaedics Consult [CPT-60873] COMP METABOLIC PANEL [CPT- 48762] CBC W/DIFF [CPT-33255] HgBA1c [CPT-33790] LIPID PANEL [CPT-58269] TSH [CPT-90809] T-4 free [CPT-20080] Vitamin D 250H Unspecified [CPT-22347] URINALYSIS [CPT-86253] Adult - Ofc Vst, EST, Level IV [CPT-65798] Follow-Up Return to clinic: 3-4 weeks for follow up. Clinical Visit Summary CompletedVaccines Administered/Entered:Vaccination Group: H1N1 InfluenzaSeries: 1 NOT GIVENVaccination: Influenza A (H1N1) Monoval PF Intramuscular SuspensionReason Not Given: Patient decisionEntered Date: 09/25/2019 12:00 AMComments: pt refusedEntered by: Deysi Bro MA Name Value Range Interpretation Code Description Data Liv rce(s) Supporting Document(s) Procedure Vital Signs ID Date Data Source UNK Name Value Range Interpretation Code Description Data Source(s) Body mass index (BMI) [Ratio] 20.9 kg/m2 20.9 k g/m2 [facility] ([facility]) Body weight 150.00 [lb_av] 150.00 [lb_av] MEDEN T ([facility]) Body height 71 [in_i] 71 [in_i] [facility] ([facility]) 5'11" Body temperature 98.2 [degF] 98.2 [degF] [facility] ([facility])
--- OUTSIDE RECORDS SUMMARY | 2020-10-02 15:22 | CCD | Continuity of Care Document ---
Author Author Miguel PHAN PA-C Organization Unknown Address [address] [place] [id number] Phone [phone] Care Team Providers Care Radiator Repairer Name Role Phone Maya Bal ELECTRICIAN [employer] AUTM [phone] Problems Description No Information Available Social History [...] degeneration, lumbar region M54.31 Sciatica, right side M76.31 Iliotibial band syndrome, ri ght leg Office Visit 05/29/2020 2:45p Jacinta Phan PA-C M5 1.36 Other intervertebral disc degeneration, lumbar region M54.31 Sciatica, right side Assessments Date Code Description Provider 07/10/2020 M51.36 Other intervertebral disc degene ration, lumbar region Jazz Phan PA-C 07/10/2020 M54.31 Sciatica, right side Jazz Phan PA-C 07/10/2020 M76.31 Iliotibial band syndrome, right leg Jazz Phan PA-C 05/29/2020 M51.36 Other intervertebral disc [...] re-check * M54.31 Sciatica, right side * M76.31 Iliotibial band syndrome, right leg Functional Status Description No Information Available Mental Status Description No Information Available Referrals Refer to Reason for Referral Status Appt Date Jazz Phan PA-C MRI- BACK PER WEB. PASSED TO [facility]. RADHA Created [address] [place] [address] [address] [place] [address] [phone]
[2020-10-02] MEDS ORDERED: NORCO, ANEXSIA 5/325MG TABLET (HYDROcodone/ACETAMINOPHEN) PO ONE (16:15)
--- OUTSIDE RECORDS SUMMARY | 2020-10-02 16:27 | CCD ---
Author Author [facility] Organization [facility] Address Unknown Phone Unavailable Care Team Providers Care Clinical Nursing Instructor Name Role Phone Blayne, A Lidya STARS SPECIALIST Unavailable Unavailable Blayne, A Lidya STARS SPECIALIST Unavailable Unavailable Blayne, A Lidya STARS SPECIALIST Unavailable Unavailable Blayne, A Lidya STARS SPECIALIST Unavailable Unavailable Blayne, A Lidya STARS SPECIALIST Unavailable Unavailable Blayne, A Lidya STARS SPECIALIST Unavailable Unavailable Blayne, A Lidya STARS SPECIALIST Unavailable Unavailable Blayne, A Lidya STARS SPECIALIST Unavailable Unavailable Blayne, A Lidya STARS SPECIALIST Unavailable Unavailable Blayne, A Lidya STARS SPECIALIST Unavailable Unavailable Blayne, A Lidya STARS SPECIALIST Unavailable Unavailable Blayne, A Lidya STARS SPECIALIST Unavailable Unavailable Blayne, A Lidya STARS SPECIALIST Unavailable Unavailable Blayne, A Lidya STARS SPECIALIST Unavailable Unavailable Blayne, A Lidya STARS SPECIALIST Unavailable Unavailable Blayne, A Lidya STARS SPECIALIST Unavailable Unavailable Blayne, A Lidya STARS SPECIALIST Unavailable Unavailable Blayne, A Lidya STARS SPECIALIST Unavailable Unavailable Blayne, A Lidya STARS SPECIALIST Unavailable Unavailable Blayne, A Lidya STARS SPECIALIST Unavailable Unavailable Blayne, A Lidya STARS SPECIALIST Unavailable Unavailable Blayne, A Lidya STARS SPECIALIST Unavailable Unavailable Blayne, A Lidya STARS SPECIALIST Unavailable Unavailable Blayne, A Lidya STARS SPECIALIST Unavailable Unavailable Blayne, A Lidya STARS SPECIALIST Unavailable Unavailable Blayne, A Lidya STARS SPECIALIST Unavailable Unavailable Blayne, A Lidya STARS SPECIALIST Unavailable Unavailable Rachell Garcia MD Unavailable Unavailable [...] Unavailable Unavailable Rachell Garcia MD Unavailable Unavailable aRchell Garcia MD Unavailable Unavailable Rachell Garcia MD [...] M Barratt PA Unavailable Unavailable Lidya Cisneros STARS SPECIALIST STARS SPECIALIST Unavailable Unavailable Re-disclosure Warning The records that [...] is protected by Article 27-F of the [facility] Public Health law. If you continue you may have access to information: Regarding HIV / AIDS; Provided by facilities licensed or operated by the [facility] Office of Mental Health; or Provided by the [facility] Office for People With Developmental Disabilities. If such information is present, then the following [facility] mandated warning applies: This information has been [...] law may result in a fine or fpc sentence or both. A general authorization for the release of medical or other information is NOT sufficient authorization for further disc losure. Allergies and Adverse Reactions Type Description Substance Reaction Status Data Source(s ) Drug allergy HYDROCODONE HYDROCODONE [place] [facility] Drug allergy CLINDAMYCIN CLINDAMYCIN [place] [facility] Family [facility] Family History Family Member Name Family Member Gender Family Member Status Date o f Status Description Data Source(s) Unknown Unknown Problem [facility] ([facility]) Encounters Encounter Providers Location Date Indications Data Source(s ) Outpatient Attender: Jazz CISNEROS Physical Therapy 02:45:00 PM EDT [facility] ([facility]) Outpatient Attender: Jazz CISNEROS Physical Therapy 02:45:00 PM EDT [facility] ([facility]) Outpatient Attender: Jazz CISNEROS Physical Therapy 01:15:00 PM EDT [facility] ([facility]) Outpatient Referrer: Jazz CISNEROS 03/05/2020 04:44:0 0 PM EDT [facility] Outpatient 03/05/2020 04:40:00 PM EDT [facility] Outpatient Attender: DENISE WALKER 02/09/2020 02:16:01 P M EDT [facility] Outpatient Attender: Lidya WALKER 02/09/2020 02:1 5:00 PM EDT [facility] Outpatient Attender: DENISE WALKER 02/01/2020 02:52:02 P M EDT [facility] Outpatient Attender: DENISE WALKER 01/31/2020 02:51:01 P M EDT [facility] Outpatient Attender: DENISE WALKER 01/22/2020 01:26:00 P M EDT [facility] Outpatient Attender: DENISE WALKER 12/07/2019 01:43:00 P M EDT [facility] Outpatient Attender: Jazz CISNEROS Physical Therapy 10:45:00 AM EDT [facility] ([facility]) Outpatient Attender: Lidya WALKER FP 11/04/2019 02:2 2:00 PM [facility] Outpatient Attender: DENISE WALKER FP 11/04/2019 02:22:00 P M [facility] Outpatient Attender: DENISE WALKER FP 10/27/2019 09:18:04 A M [facility] Outpatient Attender: Lidya Blayne WALKER FP 10/25/2019 01:1 8:02 PM [facility] Outpatient Attender: Lidyara Blayne WALKER FP 10/19/2019 10:1 4:47 AM [facility] Outpatient Attender: DENISE WALKER FP 10/19/2019 10:14:04 A M [facility] Outpatient 10/16/2019 08:35:00 AM [facility] Outpatient 10/12/2019 08:39:00 AM [facility] Outpatient 10/11/2019 02:56:00 PM [facility] Outpatient 10/11/2019 02:33:00 PM [facility] Imaging OFFICE OUTPATIENT NEW 30 MINUTES Attender: Jazz CISNEROS Ph ysical Therapy 10/06/2019 08:30:00 AM EST [facility] ([facility]) Outpatient Attender: Mati Garcia MD 09/29/2019 02:42:00 PM [facility] Outpatient Attender: Mati Garcia MD 09/26/2019 12:00:07 AM [facility] Outpatient Attender: Mati Garcia MD 09/25/2019 01:11:00 PM [facility] Outpatient Attender: Mati Garcia MD FP 09/25/2019 01:10:00 PM [facility] Outpatient Attender: Mati Garcia MD FP 09/25/2019 11:31:59 AM [facility] Outpatient Attender: Mati Garcia MD FP 09/25/2019 09:54:01 AM [facility] Outpatient Attender: Mati Garcia MD FP 09/22/2019 11:34:02 AM [facility] Medications Medication Brand Name Start Date Product Form Dose Route Admi nistrative Instructions Pharmacy Instructions Status Indications Reaction Description Data Source(s) Baclofen 10 MG Oral Tablet Baclofen 10/06/2019 12:00:00 AM EST active [facility] ([facility]) Insurance Providers Payer name Policy type / Coverage type Policy ID Covered alliance party ID Covered alliance party's relationship to [place] Policy [place] Plan Information GM [id number] SP [id number] UNHC COMMUNITY PLAN MCDHMO [id number] SP [id number] [facility]CA[facility]) O [id number] S [id number] Managed Care [facility] Community Plan P [id number] S [id number] Medicaid S [id number] S [id number] MEDICAID [id number] SP [id number] Managed Care [facility] P [id number] S [id number] ANSI-Medicaid [id number] Managed Care [facility] P [id number] S [id number] Medicaid S [id number] S [id number] SELF PAY UNAVAILABLE SP UNAVAILA BLE [facility] Maintenance Organization (HMO) [id number] [facility] Community Plan Commercial [id number] Self [id number] Managed Care - [facility] P [id number] S [id number] [facility] Maintenance Organization (HMO) [id number] Self [id number] [employer] NO FAULT [id number] 1 4 SP [id number] 1 4 [facility](MCAID) O [id number] S [id number] SELF PAY ONLY [id number] SP [id number] [employer] PLAN [id number] SP [id number] [employer] PLAN UNAVAILABLE SP UNAVAILABLE [employer] PLAN [id number] SP [id number] MEDICAID P [id number] S [id number] Problems, Conditions, and Diagnoses Code Display Name Description Problem Type Effective Dates Data Source(s) F12.90 Cannabis use, unspecified, uncomplicated Cannabis use, unspecified, uncomplicated 02/09/2020 02:14:36 PM EDT [facility] V65.8 Person consulting for explanation of exa mination or test findings Person consulting for explanation of examination or test findings 02/01/2020 02:51:42 PM EDT [facility] [id number] Alcohol dependence, uncomplicated Alcohol dependence, uncomplicated 09/25/2019 11:31:34 AM EST [facility] 724.5 Chronic back pain Chronic back pain 09/25/2019 11:31:34 AM EST [facility] Surgeries/Procedures Procedure Description Date Indications Data Source(s) X-Ray Spine Lumbosacral Complete Inc Bending Views Min Of 6 10/06/2019 12:00:00 AM EST [facility] ([facility]) Results ID Date Data Source [id number] 03/20/2020 12:00:00 AM [facility] Patient Name: HAROON NEGRON [id number] [facility] Date of : 1980 89 Date of Exam: 03/20/2020GRISEL Workman [id number]#: Fax: [phone] EXAM: MRI LUMBAR SPINE WITHOUT [...] rce(s) Supporting Document(s) ID Date Data Source [id number] 02/01/2020 02:01:24 PM EDT [facility] Measurements & CalculationsHeight: 71 inches [...] Illness (HPI)This visit was conducted via telephone. Lidya WALKER has received verbal consent from the [...] during this visit, including review of any qavk-hez-qxpefud medications, herbal therapies, and/or supplements.Allergy ReviewAllergy List [...] explanation of examination or test findings (ICD-V65.8) (LKF62-L94.2) Assessment: Instructions: Lab results reviewed with you todayPerson consulting for explanation of examination or test findings (ICD-V65.8) (ICD10- Z71.2) Assessment: Telephone visit 20 minutesLab results discussed. Pt sees specialist for chronic back pain. Patient will call for sooner appointment.Smoking cessation and alcohol cessation discussed.Cannabis use, unspecified, uncomplicated (LWZ41-Y82.90) Assessment: Instructions: Marijuana is still an illicit substance in the state of [place]. Please try to avoid use.Assessed:Chronic back pain (ICD-724.5) (UWT57-X87.9) Assessment: Instructions: Please continue to follow with your specialist. May call for a sooner appointment.Alcohol dependence, uncomplicated (IIQ95-H55.20) Assessment: Instructions: Please try to cut back on drinking alcohol with a goal to quit drinking alcohol. Please do not dink alcohol while taking present medications.Chronic back pain (ICD-724.5) (WSJ59-X55.9) Assessment: sees orthoNicotine dependence, cigarettes, uncomplicated (EED17-P72.210) Assessment: Instructions: Please try to cut back [...] is still an illicit substance in the [facility]. Please try to avoid use. Plan developed in collaboration with patient and/or familyMedications:IBUPROFEN 800 MG ORAL TABLETTIZANIDINE HCL 4 MG ORAL TABLETCYCLOBENZAPRINE HCL 10 MG ORAL TABLETAllergies:* CLINDAMYCIN (Critical)HYDROCODONE (Critical)Orders:COMP METABOLIC PANEL [CPT-98401] CBC W/DIFF [CPT-03549] LIPID PANEL [CPT-65462] HgBA1c [CPT-05641] Telephone E&M 11- 20 min Medical Discussion [CPT-44563] Follow-Up Return to clinic: 3-4 months for follow up Additional Follow-Up: telephone visit 20 minutes Name Value Range Interpretation Code Description Data Liv rce(s) Supporting Document(s) ID Date Data Source [id number] 10/19/2019 09:25:39 AM EST [facility] Labs In-House Blood TestsDate/Time Colle cted: October 19, 2019 9:26 AMTest Result Reference Range Normal ValueComments: blood draw done in offcie done in the right ac toleated well Steve Sykes SHANNON, October 19, 2019 9:26 AMAssessment & Plan Orders:25007-Jep Vst-Est Level I [CPT-82376] 06629 - Venipuncture [CPT-41795] Name Value Range Interpretation Code Description Data Liv rce(s) Supporting Document(s) ID Date Data Source [id number] 10/19/2019 09:25:00 AM EST [facility] Name Value Range Interpretation Code Description Data Liv rce(s) Supporting Document(s) HCT 48.3 % 42.0-52.0 [facility] HGB 16.2 g/dL 13.5-17.5 [facility] MCH 33.5 G/DL pg 32.0-36.5 N [facility] MCHC 32.8 PG % 27.0-33.0 N [facility] PLATELETS 316 10 10*3/mm3 150-450 N [facility] RBC 4.94 10 10*6/mm3 4.30-6.10 N [facility] RDW 11.7 % 11.5-14.5 N [facility] WBC TOTAL 10.8 4.0-10.0 H [facility] ID Date Data Source [id number] 10/19/2019 09:25:00 AM EST [facility] Name Value Range Interpretation Code Description Data Liv rce(s) Supporting Document(s) HGBA1C 5.3 % N [facility] ID Date Data Source [id number] 10/19/2019 09:25:00 AM EST [facility] Name Value Range Interpretation Code Description Data Liv rce(s) Supporting Document(s) VIT D25 TOT 20.5 ng/mL 30.0-100.0 L [facility] BG FASTING 104 mg/dL 70-100 H [facility] T4, FREE 0.92 ng/dL 0.76-1.46 N [facility] TSH 1.470 microintl units/mL 0.358-3.740 N [facility] ID Date Data Source [id number] 09/25/2019 09:57:14 AM [facility] Measurements & CalculationsHeight: 71 inches (5 [...] numb at random. pt states follows at [facility] neurology. , pt states will call to schedule an appointment. Pt request ing a referral to ortho for eval of his chronic back pain. HPI performed by: Lidya WALKER, September 25, 2019 1:46 PMTransitions of Care InboundProblem ReviewProblem List was reviewed and/or updated during this visit.Medication Reconciliation & ReviewMedication List was reviewed and/or updated during this visit, including review of any rohp-rtz-hcmulpg medications, herbal therapies, and/or supplements.Allergy ReviewAllergy List [...] Plan P roblems:Added: Chronic back pain (ICD-724.5) (ZEC87-A04.9) Assessment: Patient states chronic back pain. worst over the last couple weeks. Instructions: Please continue medications as prescribed. May take warm baths or showers to help relax muscles. May alternate moist heat with cold therapy.Alcohol dependence, uncomplicated (FHG66-A59.20) Assessment: Instructions: Please try to cut back on drinking alcohol with a goal to quit drinking. Please do not dink alcohol while taking present medications.Chronic back pain (ICD-724.5) (BVA79-Z11.9) Assessment: Instructions: Please make an appointment to see your neurologist as soon as possible.Assessed:Pain in thoracic spine (ICD-724.1) (NWW44-G30.6) Assessment: Instructions: We have made a referral for you today. We will contact you to set this up. Please continue medications as prescribed. Please report any major side effects.Nicotine dependence, cigarettes, uncomplicated (MCV10-H74.210) Assessment: pt states smoke one to two packs cigarettes daily. Instructions: cigarette smoking is linked to many health concerns. Please try to cut back on your smoking with a goal to quit.Cold extremities (ICD-780.99) (KVN05-M12.8): hand bilaterally Assessment: Instructions: Please make an appointment to see your neurologist as soon as possible.Elevated blood pressure reading without diagnosis of hypertension (ICD- 796.2) (YCD72-N33.0) Assessment: Instructions: Your BP is elevated today. Please continue lifestyle changes to include healthy diet and physical activities. Please try avoid added sodium in your diet. Please try to maintain adequate hydration.Assessment not Saved Nicotine dependence; cigarettes; uncomplicated (ZDM01-A51.210): Patient Instructions/Care Plan: Pain in thoracic spine: [...] MG ORAL TABLET-prnAllergies:* CLINDAMYCIN (Critical)HYDROCODONE (Critical)Orders:Orthopaedics Consult [CPT-11196] COMP METABOLIC PANEL [CPT- 29141] CBC W/DIFF [CPT-14026] HgBA1c [CPT-03345] LIPID PANEL [CPT-58774] TSH [CPT-31183] T-4 free [CPT-23496] Vitamin D 250H Unspecified [CPT-38421] URINALYSIS [CPT-33384] Adult - Ofc Vst, EST, Level IV [CPT-95281] Follow-Up Return to clinic: 3-4 weeks for [...] [Ratio] 20.9 kg/m2 20.9 k g/m2 [facility] ([facility]) Body weight 150.00 [lb_av] 150.00 [lb_av] MEDEN T ([facility]) Body height 71 [in_i] 71 [in_i] [facility] ([facility]) 5'11" Body temperature 98.2 [degF] 98.2 [degF] [facility] ([facility])
[2020-10-02 16:43] LABS: BASO # 0.1 10^3/uL (0.0-0.2); BASO % 0.3 % (0.0-1.0); EOS % 0.2 % (0.0-3.0); HEMATOCRIT 42.2 % (42.0-52.0); HEMOGLOBIN 14.5 g/dl (13.5-17.5); LYMPH # 0.9 10^3/uL (1.5-5.0); LYMPH % 3.6 % (24.0-44.0); MEAN CORPUSCULAR HEMOGLOBIN 33.5 pg (27.0-33.0); MEAN CORPUSCULAR HGB CONC 34.4 g/dl (32.0-36.5); MEAN CORPUSCULAR VOLUME 97.5 fl (80.0-96.0); MONO # 2.3 10^3/uL (0.0-0.8); MONO % 9.6 % (0.0-5.0); NEUTROPHILS # 20.5 10^3/uL (1.5-8.5); NEUTROPHILS % 85.2 % (36.0-66.0); PLATELET COUNT, AUTOMATED 292 10^3/uL (150-450); RED BLOOD COUNT 4.33 10^6/uL (4.30-6.10)
[2020-10-02 17:06] LABS: ERYTHROCYTE SEDIMENTATION RATE 42 mm/hr (0-15)
--- NOTE | 2020-10-02 17:07 | REP ---
INDICATION: mass right buttocks hematoma vs abscess?. COMPARISON: None. TECHNIQUE: Real-time sonographic evaluation of right buttock performed in the region of redness and swelling. FINDINGS: Complex fluid collection is seen in the soft tissues measuring 5.1 x 3.2 x 3.4 cm. IMPRESSION: There is a complex fluid collection in the right buttock soft tissues 5.1 x 3.2 x 3.4 cm. Differential diagnosis would include abscess or hematoma. <Electronically signed by Sujit Yeh > 10/02/20 0848
[2020-10-02 17:09] LABS: BILIRUBIN,DIRECT 0.3 MG/DL (0.0-0.2); BILIRUBIN,TOTAL 0.8 MG/DL (0.2-1.0); C REACTIVE PROTEIN QUANTITATIV 12.5 MG/DL (0.00-0.30); TOTAL PROTEIN 6.4 GM/DL (6.4-8.2)
[2020-10-02] MEDS ORDERED: HYDR-3713 PO (17:21)
[2020-10-02] MEDS ORDERED: KETO10TAB PO (17:21)
[2020-10-02] MEDS ORDERED: BACT800T5 PO (17:21)
[2020-10-02 17:40] VITALS: BP 111/72
== END 2020-10-02 17:42 | disposition home or self-care (01) ==
LOC: M ED 15:15
DX: S30.0XXA Contusion of lower back and pelvis, initial encounter (principal); W10.8XXA Fall (on) (from) other stairs and steps, initial encounter; Y92.89 Other specified places as the place of occurrence of the external cause; G47.33 Obstructive sleep apnea (adult) (pediatric); Z91.040 Latex allergy status; Z91.048 Other nonmedicinal substance allergy status; Z88.1 Allergy status to other antibiotic agents; F17.210 Nicotine dependence, cigarettes, uncomplicated

== ENCOUNTER 2020-10-04 15:04 | Emergency (ER) | payer OTHER, MEDICAID ==
[~2020-10-04] VITALS: Ht 182.9 cm; Wt 67.1 kg
[~2020-10-04 15:04] MED LIST changes: +BACT800T5 PO; +HYDR-3713 PO; +KETO10TAB PO
[2020-10-04 17:10] VITALS: BP 107/68
== END 2020-10-04 17:12 | disposition home or self-care (01) ==
LOC: M ED 15:04
DX: L03.317 Cellulitis of buttock (principal); S30.0XXA Contusion of lower back and pelvis, initial encounter; X58.XXXA Exposure to other specified factors, initial encounter; Y92.89 Other specified places as the place of occurrence of the external cause; Z88.1 Allergy status to other antibiotic agents; Z91.040 Latex allergy status; Z91.048 Other nonmedicinal substance allergy status

== ENCOUNTER → 2021-05-07 | Outpatient (REF) ==
--- NOTE | 2021-05-07 11:56 | REP ---
INDICATION: INJURY COMPARISON: None. TECHNIQUE: AP, lateral, bilateral oblique and sunrise views. FINDINGS: The osseous structures and joint spaces are intact and relatively normal/stable. Lateral view best demonstrates chronic unfused tibial tuberosity without overlying acute changes. There is no evidence for acute fracture or dislocation. No joint effusion is appreciated. Surrounding soft tissues are unremarkable. No subcutaneous emphysema or radiodense foreign body. IMPRESSION: Stable examination. No acute pathology appreciated by radiographic evaluation.. <Electronically signed by Ricardo Jauregui > 05/07/21 1833
== END ==
LOC: M PLAIMG 11:16
PROVIDERS: ATTEND Internal Medicine
DX: S89.92XA Unspecified injury of left lower leg, initial encounter (principal); X58.XXXA Exposure to other specified factors, initial encounter; Y92.9 Unspecified place or not applicable; Y99.9 Unspecified external cause status

== ENCOUNTER → 2022-02-23 | Outpatient (CLI) | payer OTHER ==
[~2022-02-23] MED LIST changes: +TIZA10TA; -TIZA4TAB4
[2022-02-23 12:26] LABS: PLATELET COUNT, AUTOMATED 252 10^3/uL (150-450)
[2022-02-23 12:41] LABS: INR 0.84; PROTHROMBIN TIME 11.9 SECONDS (12.7-14.5)
[2022-02-23 12:42] LABS: PARTIAL THROMBOPLASTIN TIME 26.3 SECONDS (25.9-37.0)
== END ==
LOC: M LAB 11:56
PROVIDERS: ATTEND Physician Assistant
DX: M51.16 Intervertebral disc disorders with radiculopathy, lumbar region (principal)

== ENCOUNTER → 2022-06-11 | Outpatient (CLI) | payer OTHER | LOC: M PLALAB 09:42 | PROVIDERS: ATTEND Physical Medicine & Rehabilitation | DX: M50.322 Other cervical disc degeneration at C5-C6 level (principal) ==

== ENCOUNTER → 2022-06-24 | Outpatient (CLI) | payer OTHER | LOC: M PLALAB 13:53 | PROVIDERS: ATTEND Physical Medicine & Rehabilitation | DX: M51.36 Other intervertebral disc degeneration, lumbar region (principal) ==

== ENCOUNTER → 2022-11-06 | Outpatient (CLI) | payer OTHER | LOC: M PLARAD 08:04 | PROVIDERS: ATTEND Nurse Practitioner Family | DX: M54.12 Radiculopathy, cervical region (principal); M25.78 Osteophyte, vertebrae; M99.61 Osseous and subluxation stenosis of intervertebral foramina of cervical region ==

== ENCOUNTER 2024-08-19 10:17 | Emergency (ER) | payer OTHER ==
[~2024-08-19] VITALS: Ht 175.3 cm; Wt 68.3 kg
[2024-08-19] MEDS ORDERED: METH4PACK (10:28)
[2024-08-19] MEDS: LIDOCAINE W/EPINEPHRINE 1% 20ML VIAL SC ONE (11:35)
[2024-08-19] MEDS: ACETAMINOPHEN 325 MG TAB PO ONE (11:48)
[2024-08-19] MEDS ORDERED: TRAM50TA2 PO (12:57)
[2024-08-19] MEDS ORDERED: BACT800T5 PO (12:57)
[2024-08-19] MEDS: BACTRIM 160MG/800MG DS TAB PO ONE (13:06)
[2024-08-19 13:09] VITALS: BP 130/70; TEMP 98.3; O2SAT 97
== END 2024-08-19 13:12 | disposition home or self-care (01) ==
LOC: M ED 10:17
DX: L05.01 Pilonidal cyst with abscess (principal); F17.210 Nicotine dependence, cigarettes, uncomplicated; Z91.040 Latex allergy status; Z88.1 Allergy status to other antibiotic agents; Z79.1 Long term (current) use of non-steroidal anti-inflammatories (NSAID); Z79.899 Other long term (current) drug therapy

== ENCOUNTER → 2024-11-01 | Outpatient (CLI) | payer OTHER ==
[~2024-11-01] MED LIST changes: +METH4PACK; +TRAM50TA2 PO
== END ==
LOC: M RAD 13:51
PROVIDERS: ATTEND Physician Assistant
DX: M51.16 Intervertebral disc disorders with radiculopathy, lumbar region (principal); M47.817 Spondylosis without myelopathy or radiculopathy, lumbosacral region

== ENCOUNTER → 2025-01-01 | Outpatient (REF) | payer OTHER ==
[2025-01-01 18:28] LABS: BASO # 0.1 10^3/uL (0.0-0.2); BASO % 1.2 % (0.0-1.0); EOS # 0.3 10^3/uL (0.0-0.5); EOS % 3.2 % (0.0-3.0); HEMATOCRIT 52.2 % (42.0-52.0); HEMOGLOBIN 17.7 g/dl (13.5-17.5); LYMPH # 1.8 10^3/uL (1.5-5.0); LYMPH % 23.1 % (24.0-44.0); MEAN CORPUSCULAR HEMOGLOBIN 33.4 pg (27.0-33.0); MEAN CORPUSCULAR HGB CONC 33.9 g/dl (32.0-36.5); MEAN CORPUSCULAR VOLUME 98.5 fl (80.0-96.0); MONO # 0.6 10^3/uL (0.0-0.8); MONO % 7.7 % (2.0-8.0); NEUTROPHILS % 64.4 % (36.0-66.0); PLATELET COUNT, AUTOMATED 301 10^3/uL (150-450); WHITE BLOOD COUNT 7.8 10^3/uL (4.0-10.0)
[2025-01-01 18:57] LABS: ALBUMIN 3.8 G/DL (3.2-5.2); ALKALINE PHOSPHATASE 100 U/L (40-129); ALT/SGPT 42 U/L (7.0-40); AST/SGOT 28 U/L (<34); BILIRUBIN,TOTAL 0.3 MG/DL (0.3-1.2); BLOOD UREA NITROGEN 5 MG/DL (9-23); CALCIUM LEVEL 9.6 MG/DL (8.5-10.1); CARBON DIOXIDE LEVEL 28 MMOL/L (20-31); CHLORIDE LEVEL 107 MMOL/L (98-107); CHOLESTEROL LEVEL 145 MG/DL (<200); CHOLESTEROL RISK RATIO 2.71 (<5); CREATININE FOR GFR 0.71 MG/DL (0.70-1.30); GLOMERULAR FILTRATION RATE > 90.0 (>60); GLUCOSE, FASTING 92 MG/DL (60-100); HDL CHOLESTEROL 53.5 MG/DL (>40); LDL CHOLESTEROL 65.9 MG/DL (<100); NON-HDL-C 91.5 MG/DL; POTASSIUM SERUM 5.1 MMOL/L (3.5-5.1); SODIUM LEVEL 141 MMOL/L (136-145); TOTAL PROTEIN 7.1 G/DL (5.7-8.2); TRIGLYCERIDES LEVEL 128 MG/DL (<150)
== END ==
LOC: M LAB REF 17:17
PROVIDERS: ATTEND Nurse Practitioner Family
DX: K21.9 Gastro-esophageal reflux disease without esophagitis (principal); Z13.220 Encounter for screening for lipoid disorders